=== PATIENT | male | born 1970 | race Two or more races ===

== ENCOUNTER 2023-09-12 09:35 | Emergency (ER) | payer OTHER ==
[~2023-09-12] VITALS: Ht 165.1 cm; Wt 93.4 kg
[~2023-09-12 09:35] MED LIST: KETO10TA2 PO; TORADOL10 MG PO
[2023-09-12] MEDS ORDERED: COZAAR25 MG PO (09:58)
[2023-09-12] MEDS ORDERED: XIGDUO XR 10 M1 EAC1 PO (09:58)
[2023-09-12] MEDS ORDERED: KETOROLAC TROMETHAMINE 30 MG VIAL IM STA (10:08)
[2023-09-12 10:36] LABS: CALCIUM 9.4 mg/dL (8.5-10.1); CREATININE SERUM 1.43 mg/dL (0.70-1.30); GFR 51.53; POTASSIUM 3.73 mEq/L (3.5-5.1)
[2023-09-12 10:49] LABS: HEMATOCRIT 47.4 % (39.0-48.0); HEMOGLOBIN 16.4 g/dL (13-16.00); MEAN CELL VOLUME 88.5 fL (80.0-100.00); MEAN CORPUSCULAR HEMOGLOBIN 30.6 pg (27.00-32.0); MEAN CORPUSCULAR HGB CONC 34.5 g/dl (32.0-36.0); PLATELET COUNT 214 K/uL (150-450); RED BLOOD COUNT 5.35 M/uL (4.00-6.00); RED CELL DISTRIBUTION WIDTH 13.7 % (11.5-14.5)
[2023-09-12 11:00] LABS: PH,URINE 5.5 (5.0-8.0); URINE APPEARANCE Clear; URINE BILIRRUBIN Negative (NEGATIVE); URINE BLOOD Small; URINE COLOR Yellow; URINE LEUKOCYTE Negative; URINE NITRATE Negative; URINE PROTEIN Trace (NEGATIVE)
[2023-09-12 11:13] LABS: URINE BACTERIA 8.8 uL (0.0-1933); URINE EPITHELIAL CELLS 6.7 uL (0.0-38.8); URINE RBC 7.7 uL (0.0-20.8)
[2023-09-12 12:07] LABS: URINE GLUCOSE >=1000 MG/DL (NEGATIVE)
[2023-09-12] MEDS ORDERED: CEFTRIAXONE SODIUM 2,000 MG VIAL IV STA (12:55)
[2023-09-12] MEDS ORDERED: 0.9 % SODIUM CHLORIDE 1,000 ML IV STA (17:37)
[2023-09-12] MEDS ORDERED: FAMOTIDINE/PF 20 MG in 0.9 % SODIUM CHLORIDE 8 ML IV PUSH SCH (18:11)
[2023-09-12] MEDS ORDERED: VANCOMYCIN HCL 1,000 MG VIAL IV ONE (18:15)
[2023-09-12] MEDS ORDERED: 0.9 % SODIUM CHLORIDE 1,000 ML IV ONE (18:15)
[2023-09-12] MEDS ORDERED: DEXTROSE 50 % IN WATER 0.5 G/ML DISP.SYRIN IV PRN (18:15)
[2023-09-12] MEDS ORDERED: PIPERACILLIN/TAZOBACTAM SODIUM 3.375 GM in DEXTROSE 5 % IN WATER 100 ML IV ONE (18:15)
[2023-09-12] MEDS ORDERED: ACETAMINOPHEN 500 MG GEL..CAP PO PRN (18:15)
[2023-09-12] MEDS ORDERED: INSULIN LISPRO 1,000 UNIT/10 ML UNITS SUBCUTANEO PRN (18:15)
[2023-09-13] MEDS ORDERED: PIPERACILLIN/TAZOBACTAM SODIUM 3.375 GM in DEXTROSE 5 % IN WATER 100 ML IV SCH (02:00)
== END 2023-09-13 07:35 | disposition designated cancer center or children's hospital (05) ==
LOC: ER 09:35
PROVIDERS: General Practice
DX: N50.811 Right testicular pain (principal); Z88.1 Allergy status to other antibiotic agents